=== PATIENT | male | born 1980 | race Caucasian/White ===

== ENCOUNTER 2021-02-12 22:15 | Emergency (ER) | payer BC ==
[2021-02-12 22:32] VITALS: BP 120/80; PULSE 61; RESP 18; TEMP 97.2
--- NOTE | 2021-02-12 23:44 | ED ---
Headache HPI - General Chief Complaint: Headache Stated Complaint: Covid test Time Seen by Provider: 02/12/21 23:18 Mode of arrival: ambulatory Limitations: no limitations - History of Present Illness Initial Comments: 40-year-old male patient presented to the emergency department today sent by his employer for Covid test. Patient states the last 2 days he has been having insomnia, headache, and body aches. States he went to work tonight and once he told his employer his symptoms are concerned he may have Covid. Patient states insomnia was his first symptom followed by the others. He denies any fever or chills. Denies nasal congestion or drainage. Denies any cough. Denies any new medications or stopping any medications. States he does have a history of anxiety and depression. Denies any suicidal or homicidal ideation. - Related Data Allergies Allergy/AdvReac Type Severity Reaction Status Date / Time No Known Allergies Allergy Verified 02/12/21 22:32 Review of Systems ROS Statement: Those systems with pertinent positive or pertinent negative responses have been documented in the HPI. ROS Other: All systems not noted in ROS Statement are negative. Past Medical History Past Medical History: Seizure Disorder History of Any Multi-Drug Resistant Organisms: None Reported Past Surgical History: Ear Surgery Additional Past Surgical History / Comment(s): tubes in ears Past Psychological History: Anxiety, Depression Smoking Status: Current every day smoker Past Alcohol Use History: Occasional Past Drug Use History: None Reported General Exam Limitations: no limitations General appearance: alert, in no apparent distress, other (This is a well- developed, well-nourished adult male in no acute distress.) Respiratory exam: Present: normal lung sounds bilaterally. Absent: respiratory distress, wheezes, rales, rhonchi, stridor Cardiovascular Exam: Present: regular rate, normal rhythm, normal heart sounds. Absent: systolic murmur, diastolic murmur, rubs, gallop, clicks GI/Abdominal exam: Present: soft, normal bowel sounds. Absent: distended, tenderness, guarding, rebound, rigid Neurological exam: Present: alert, oriented X3, CN II-XII intact Psychiatric exam: Present: normal affect, normal mood Skin exam: Present: warm, dry, intact, normal color. Absent: rash Course Vital Signs 02/12/21 22:28 Temperature 97.2 F L Pulse Rate 61 Respiratory 18 Rate Blood Pressure 120/80 O2 Sat by Pulse 100 Oximetry Medical Decision Making - Medical Decision Making 40-year-old male patient presented to the emergency department sent by his employer to have a Covid test. Physical examination is unremarkable. Reported symptoms of insomnia, headache, body aches, fatigue. He did test negative for Covid. At this time he does feel comfortable being discharged home. He is urged to get sleep, is recommended he take Benadryl for sleep aid. He is instructed to follow up with his primary care physician for recheck in 1-2 days. If he develops any further symptoms he is urged to be retested for Covid. Return parameters were discussed in detail. He verbalizes understanding and agrees with this plan. My attending is Dr. Shannon. - Lab Data Lab Results 02/12/21 Range/Units 22:34 Coronavirus (PCR) Not Detected (Not Detectd) Disposition Clinical Impression: Insomnia, Encounter for laboratory testing for COVID-19 virus Disposition: HOME SELF-CARE Condition: Good Instructions (If sedation given, give patient instructions): Insomnia (ED) Additional Instructions: Pelvis her primary care physician for recheck in 1-2 days. Return to the emergency department for any new, worsening, or concerning symptoms. Is patient prescribed a controlled substance at d/c from ED?: No Referrals: Rama Pimentel III, MD [Primary Care Provider] - 1-2 days Time of Disposition: 23:44
== END 2021-02-13 00:15 | disposition home or self-care (01) ==
LOC: EC 22:15 → MERGE 22:15 → EC 02-13 00:15
DX: G47.00 Insomnia, unspecified (principal); R51.9 Headache, unspecified; G40.909 Epilepsy, unspecified, not intractable, without status epilepticus; F17.200 Nicotine dependence, unspecified, uncomplicated; Z20.822 Contact with and (suspected) exposure to COVID-19; F32.9 Major depressive disorder, single episode, unspecified; F41.9 Anxiety disorder, unspecified
CPT/HCPCS: 87635; 99284

== ENCOUNTER 2021-03-26 00:20 | Emergency (ER) | payer BC ==
[2021-03-26 02:04] VITALS: BP 121/85; PULSE 74; RESP 16; TEMP 97.6
--- NOTE | 2021-04-15 03:05 | ED ---
General Adult HPI - General Chief complaint: Headache Stated complaint: Headache, Covid exposure Source: patient Mode of arrival: ambulatory Limitations: no limitations - History of Present Illness Initial comments: Patient left without being seen. He had testing done for advanced triage purposes, but did not want to wait to be seen or get results. - Related Data Home Medications Medication Instructions Recorded Confirmed No Known Home Medications 01/22/16 01/22/16 Allergies Allergy/AdvReac Type Severity Reaction Status Date / Time No Known Allergies Allergy Verified 02/14/21 11:36 Review of Systems ROS Statement: Those systems with pertinent positive or pertinent negative responses have been documented in the HPI. ROS Other: All systems not noted in ROS Statement are negative. Past Medical History Past Medical History: Seizure Disorder Additional Past Medical History / Comment(s): SEASONAL ALLERGIES History of Any Multi-Drug Resistant Organisms: None Reported Past Surgical History: Ear Surgery Additional Past Surgical History / Comment(s): tubes in ears Past Psychological History: Anxiety, Depression, No Psychological Hx Reported Smoking Status: Current every day smoker Past Alcohol Use History: Occasional Past Drug Use History: None Reported General Exam Limitations: no limitations Course Vital Signs 03/26/21 01:55 Temperature 97.6 F Pulse Rate 74 Respiratory 16 Rate Blood Pressure 121/85 O2 Sat by Pulse 100 Oximetry Medical Decision Making - Lab Data Lab Results 03/26/21 Range/Units 02:08 Coronavirus (PCR) Not Detected (Not Detectd) Disposition Clinical Impression: COVID-19, Patient left without being seen Disposition: Left W/O Being Seen by Phys Condition: Good Instructions (If sedation given, give patient instructions): Coronavirus Disease 2019 (COVID-19) Is patient prescribed a controlled substance at d/c from ED?: No Referrals: Rama Pimentel III, MD [Primary Care Provider] - 1-2 days
== END 2021-03-26 02:14 | disposition left against medical advice (07) ==
LOC: EC 00:20
DX: Z53.21 Procedure and treatment not carried out due to patient leaving prior to being seen by health care provider (principal)
CPT/HCPCS: 87635

== ENCOUNTER 2021-05-14 02:52 | Emergency (ER) | payer BC, OTHER ==
[2021-05-14 03:04] VITALS: BP 117/76; PULSE 94; RESP 20
[2021-05-14] MEDS ORDERED: ACETAMINOPHEN TAB 500 MG TAB PO STA (03:05)
[2021-05-14] MEDS ORDERED: IBUPROFEN 600 MG TAB PO STA (03:05)
[2021-05-14] MEDS ORDERED: dexAMETHasone 2 MG TAB PO STA (04:27)
--- NOTE | 2021-05-14 04:28 | ED ---
URI HPI - General Chief Complaint: Upper Respiratory Infection Stated Complaint: Chills, body aches Time Seen by Provider: 05/14/21 03:52 Source: patient, RN notes reviewed, old records reviewed Mode of arrival: ambulatory Limitations: no limitations - History of Present Illness Initial Comments: This is a 40-year-old male DF for evaluation today. Patient has fever cough and congestion for a few days now. No medical history takes no medications patient was at work tonight, presents to the Hospital for evaluation secondary to his symptoms. Patient believes he may have coronavirus unsure of positive exposure MD Complaint: fever, cough, sore throat, nasal congestion -: days(s) Severity: moderate Severity scale (1-10): 4 Quality: sharp Consistency: constant Improves With: nothing Context: sick contacts Associated Symptoms: rhinorrhea, nasal congestion, sore throat, cough, nausea Treatments Prior to Arrival: none - Related Data Home Medications Medication Instructions Recorded Confirmed No Known Home Medications 01/22/16 01/22/16 Allergies Allergy/AdvReac Type Severity Reaction Status Date / Time No Known Allergies Allergy Verified 05/14/21 03:01 Review of Systems ROS Statement: Those systems with pertinent positive or pertinent negative responses have been documented in the HPI. ROS Other: All systems not noted in ROS Statement are negative. Past Medical History Past Medical History: Seizure Disorder Additional Past Medical History / Comment(s): SEASONAL ALLERGIES History of Any Multi-Drug Resistant Organisms: None Reported Past Surgical History: Ear Surgery Additional Past Surgical History / Comment(s): tubes in ears Past Psychological History: Anxiety, Depression Smoking Status: Current every day smoker Past Alcohol Use History: Occasional Past Drug Use History: None Reported General Exam Limitations: no limitations General appearance: alert, in no apparent distress Head exam: Present: atraumatic, normocephalic, normal inspection Eye exam: Present: normal appearance, PERRL, EOMI. Absent: scleral icterus, conjunctival injection, periorbital swelling ENT exam: Present: normal exam, mucous membranes moist Neck exam: Present: normal inspection. Absent: tenderness, meningismus, lymphadenopathy Respiratory exam: Present: normal lung sounds bilaterally. Absent: respiratory distress, wheezes, rales, rhonchi, stridor Cardiovascular Exam: Present: regular rate, normal rhythm, normal heart sounds. Absent: systolic murmur, diastolic murmur, rubs, gallop, clicks GI/Abdominal exam: Present: soft, normal bowel sounds. Absent: distended, tenderness, guarding, rebound, rigid Extremities exam: Present: normal inspection, full ROM, normal capillary refill. Absent: tenderness, pedal edema, joint swelling, calf tenderness Back exam: Present: normal inspection Neurological exam: Present: alert, oriented X3, CN II-XII intact Psychiatric exam: Present: normal affect, normal mood Skin exam: Present: warm, dry, intact, normal color. Absent: rash Course Vital Signs 05/14/21 05/14/21 03:02 04:39 Temperature 101.1 F H 98.7 F Pulse Rate 94 Respiratory 20 Rate Blood Pressure 117/76 O2 Sat by Pulse 100 Oximetry - Reevaluation(s) Reevaluation #1: 05/14/21 Medical record is reviewed Patient symptoms improved here in the ER Patient informed of results and questions answered Medical Decision Making - Medical Decision Making N 40 male to the emergency department ow positive for upper respiratory infection symptoms. Patient does have positive coronavirus infection. Patient can be discharged home - Lab Data Lab Results 05/14/21 Range/Units 03:04 Coronavirus (PCR) Detected A (Not Detectd) Disposition Clinical Impression: Coronavirus infection Disposition: HOME SELF-CARE Condition: Good Instructions (If sedation given, give patient instructions): Coronavirus Disease 2019 (COVID-19) Is patient prescribed a controlled substance at d/c from ED?: No Referrals: Rama Pimentel III, MD [Primary Care Provider] - 1-2 days
[2021-05-14 04:40] VITALS: TEMP 98.7
== END 2021-05-14 04:39 | disposition home or self-care (01) ==
LOC: EC 02:52
DX: U07.1 COVID-19 (principal); F41.9 Anxiety disorder, unspecified; F32.A Depression, unspecified; F17.200 Nicotine dependence, unspecified, uncomplicated
CPT/HCPCS: 99283; 87635; J8540